=== PATIENT | male | born 1955 | race Caucasian/White ===

== ENCOUNTER 2017-01-22 11:02 | Emergency (ER) | payer MEDICAID ==
[~2017-01-22] VITALS: Ht 180.3 cm; Wt 85.0 kg
[2017-01-22] MEDS ORDERED: METF500T4 PO (11:07)
[2017-01-22] MEDS ORDERED: LORAZEPAM 2MG/ML CPJ IM STA (11:46)
[2017-01-22] MEDS ORDERED: KETOROLAC 60MG/2ML VIAL IM STA (11:46)
[2017-01-22 12:07] LABS: HEMATOCRIT. 42.8 % (42.0-52.0); HEMOGLOBIN. 14.9 g/dL (14.0-18.0); MEAN CORPUSCULAR HEMOGLOBIN 31.5 pg (28.0-32.0); MEAN CORPUSCULAR VOLUME 90.4 fL (80.0-94.0); MEAN PLATELET VOLUME 6.8 fl (7.4-10.4); PLATELET 231 x1000/uL (130-400); RED BLOOD CELL COUNT 4.73 mill/uL (4.7-6.1)
[2017-01-22 12:20] LABS: CARBON DIOXIDE 28 mEq/L (21-32); CHLORIDE 102 mEq/L (98-107); ETHANOL BLOOD < 10 mg/dL
[2017-01-22 13:00] LABS: PLATELET ESTIMATE NORMAL
[2017-01-22 14:05] LABS: CLARITY URINE CLEAR (CLEAR); COLOR URINE DARK YELLOW (YELLOW); GLUCOSE URINE NEGATIVE (NEGATIVE); KETONES URINE NEGATIVE (NEGATIVE); LEUKOCYTE ESTERASE URINE NEGATIVE (NEGATIVE); NITRITE URINE NEGATIVE (NEGATIVE); OCCULT BLOOD URINE NEGATIVE (NEGATIVE); PROTEIN URINE NEGATIVE (NEGATIVE); SPECIFIC GRAVITY URINE 1.017 (1.005-1.030)
[2017-01-22 14:25] LABS: *AMPHETAMINES SCREEN URINE NEGATIVE (NEGATIVE); *BARBITURATES SCREEN URINE NEGATIVE (NEGATIVE); *BENZODIAZEPINES SCREEN URINE PRESUMTIVE POSITIVE (NEGATIVE); *COCAINE SCREEN URINE NEGATIVE (NEGATIVE); CANNABINOID URINE SCREEN NEGATIVE (NEGATIVE); METHADONE URINE SCREEN NEGATIVE (NEGATIVE); OPIATES URINE SCREEN NEGATIVE (NEGATIVE); PHENCYCLIDINE URINE SCREEN NEGATIVE (NEGATIVE)
[2017-01-22] MEDS ORDERED: LORAZEPAM 1MG TABLET PO ONE (18:15)
[2017-01-26 14:36] VITALS: BP 141/70
== END 2017-01-26 14:36 | disposition home or self-care (01) ==
LOC: ER 12:41 → CANBEDREQ 01-23 22:24 → ER 01-26 14:36
DX: M54.5 Low back pain (principal); R45.851 Suicidal ideations; R44.0 Auditory hallucinations; E11.9 Type 2 diabetes mellitus without complications
CPT/HCPCS: 36415; 80053; 80305; 80307; 80329; 81003; 82962; 85025; 96372; 99284; G0482; J1885

== ENCOUNTER 2017-01-26 19:44 | Emergency (ER) | payer MEDICAID ==
[~2017-01-26] VITALS: Ht 185.4 cm; Wt 103.0 kg
[~2017-01-26 19:44] MED LIST: METF500T4 PO
[2017-01-26 21:38] LABS: BASOPHILS % 1.2 % (0.0-2.0); EOSINOPHILS % 2.3 % (0.0-5.0); HEMATOCRIT. 45.6 % (42.0-52.0); HEMOGLOBIN. 15.9 g/dL (14.0-18.0); MEAN CORPUSCULAR HEMOGLOBIN 31.3 pg (28.0-32.0); MEAN CORPUSCULAR VOLUME 89.8 fL (80.0-94.0); MEAN PLATELET VOLUME 6.8 fl (7.4-10.4); MONOCYTES % 4.2 % (2.0-8.0); NEUTROPHILS % 52.3 % (40.0-76.0); PLATELET 298 x1000/uL (130-400); RED BLOOD CELL COUNT 5.08 mill/uL (4.7-6.1); RED CELL DISTRIBUTION WIDTH 13.8 % (11.6-14.6)
[2017-01-26 21:43] LABS: CHLORIDE 99 mEq/L (98-107)
[2017-01-26 21:49] LABS: CARBON DIOXIDE 27 mEq/L (21-32); ETHANOL BLOOD < 10 mg/dL
[2017-01-27 10:33] VITALS: BP 118/79
== END 2017-01-27 10:34 | disposition home or self-care (01) ==
LOC: ER 22:32
DX: Z59.0 Homelessness (principal); E11.9 Type 2 diabetes mellitus without complications; G82.20 Paraplegia, unspecified; F17.200 Nicotine dependence, unspecified, uncomplicated; F12.10 Cannabis abuse, uncomplicated
CPT/HCPCS: 36415; 80053; 80307; 80329; 85025; 99284; G0482